=== PATIENT | male | born 1955 | race Caucasian/White ===

== ENCOUNTER 2022-04-11 11:33 | Inpatient (IN) | payer MEDICARE, SELFPAY ==
[2022-04-11 12:31] LABS: INR-International Normal Ratio 1.1; Prothrombin Time 14.5 sec (12.0-14.7)
[2022-04-11 12:32] LABS: PTT 41.3 sec (22.9-36.1)
[2022-04-11 12:33] LABS: Hemoglobin 12.1 g/dL (14.0-18.0); Mean Corpuscular HGB CONC 32.2 g/dL (32.0-36.0); Mean Corpuscular Hemoglobin 29.9 pg (27.0-31.0); Mean Corpuscular Volume 92.8 fL (78.0-98.0); Mean Platelet Volume 7.3 fL (7.4-10.4); Platelet Count 506 thou/uL (130-400); RBC Distribution Width 12.5 % (11.5-14.5); Red Blood Cell (RBC) Count 4.06 mill/uL (4.70-6.10); White Blood Cell (WBC) Count 25.2 thou/uL (4.8-10.8)
[2022-04-11 12:46] LABS: ALT (SGPT) 56 U/L (8-55); AST (SGOT) 41 U/L (5-34); Albumin 2.8 g/dL (3.4-4.8); Alkaline Phosphatase 1197 U/L (40-110); Anion Gap 14 mmol/L (10-20); BUN (Urea Nitrogen) 9 mg/dL (8.4-25.7); Bilirubin, Total 1.8 mg/dL (0.2-1.2); Calc. Creatinine Clearance 0 mL/min (70-130); Carbon Dioxide 23 mmol/L (23-31); Chloride 97 mmol/L (98-107); Globulin 3.2 g/dL (2.4-3.5); Glucose 109 mg/dL (80-115); Potassium 3.7 mmol/L (3.5-5.1); Sodium 130 mmol/L (136-145)
[2022-04-11 13:01] LABS: Band 6 % (5-11); Lymphocytes 5 % (21-51); MDiff Complete? YES; Monocytes 4 % (0-10); Neutrophil 84 % (42-75); Platelet Morphology Comment Appears Increased; Polychromasia SLIGHT = 2-3 cells (100X) (0-2/hpf); Reactive Lymphocytes 1 % (0-10)
[2022-04-11] MEDS ORDERED: Iopamidol-370 76% 500 ML 1 ML ONE (14:31)
[2022-04-11] MEDS ORDERED: Ondansetron PF 4 MG/2 ML Vial ONE (15:59)
[2022-04-11] MEDS ORDERED: Piperacillin/Tazobactam 3.375 GM VIAL ONE (16:22)
[2022-04-11] MEDS ORDERED: Ondansetron PF 4 MG/2 ML Vial IVP PRN (17:28)
[2022-04-11] MEDS ORDERED: Ondansetron ODT 4 MG TAB PO PRN (17:28)
[2022-04-11] MEDS ORDERED: Calcium Carbonate 500 MG ChewTAB PO PRN (17:28)
[2022-04-11] MEDS ORDERED: Electrolyte Replacement Protocol 1 EACH FS SCH (17:30)
[2022-04-11 17:38] VITALS: BMI 23.3
[2022-04-11] MEDS ORDERED: Electrolyte Replacement Protocol FS PRN (17:45)
[2022-04-11] MEDS ORDERED: Multivitamins, Adult 10 ML, Folic Acid 1 MG, Thiamine HCl 100 MG in Dextrose 5 %-0.45 %... IV SCH (18:00)
[2022-04-11] MEDS ORDERED: Pantoprazole 40 MG VIAL IVP SCH (18:15)
[2022-04-11] MEDS: Sodium Chloride 0.9% 1,000 ML IV SCH (19:17)
[2022-04-11] MEDS: Piperacillin/Tazobactam 3.375 GM in Sodium Chloride 0.9% 100 ML IVPB SCH (20:09)
[2022-04-12] MEDS: Sodium Chloride 0.9% 1,000 ML IV SCH ×4 (00:52→22:28)
[2022-04-12] MEDS ORDERED: D5 0.9% NS w/ 20 mEq KCl 1,000 ML IV SCH (02:00)
[2022-04-12] MEDS: Piperacillin/Tazobactam 3.375 GM in Sodium Chloride 0.9% 100 ML IVPB SCH ×3 (04:27→22:56)
[2022-04-12 06:44] LABS: Reticulocyte Count 0.8 % (0.5-1.5)
[2022-04-12 06:55] LABS: ALT (SGPT) 42 U/L (8-55); AST (SGOT) 32 U/L (5-34); Albumin 2.5 g/dL (3.4-4.8); Alkaline Phosphatase 936 U/L (40-110); Anion Gap 9 mmol/L (10-20); BUN (Urea Nitrogen) 6 mg/dL (8.4-25.7); Bilirubin, Total 1.8 mg/dL (0.2-1.2); Calc. Creatinine Clearance 127 mL/min (70-130); Calcium 8.8 mg/dL (7.8-10.44); Carbon Dioxide 27 mmol/L (23-31); Chloride 105 mmol/L (98-107); Globulin 3.4 g/dL (2.4-3.5); Glucose 110 mg/dL (80-115); Magnesium 2.1 mg/dL (1.6-2.6); Phosphorus 2.5 mg/dL (2.3-4.7); Potassium 3.2 mmol/L (3.5-5.1); Protein, Total 5.9 g/dL (5.8-8.1); Sodium 138 mmol/L (136-145)
[2022-04-12 06:58] LABS: Band 4 % (5-11); Hemoglobin 10.5 g/dL (14.0-18.0); Hypochromia SLIGHT = 6-15 cells (100X) (0-5/hpf); Lymphocytes 21 % (21-51); MDiff Complete? YES; Mean Corpuscular HGB CONC 31.6 g/dL (32.0-36.0); Mean Corpuscular Hemoglobin 29.3 pg (27.0-31.0); Mean Corpuscular Volume 92.8 fL (78.0-98.0); Mean Platelet Volume 6.7 fL (7.4-10.4); Monocytes 14 % (0-10); Neutrophil 60 % (42-75); Platelet Count 511 thou/uL (130-400); Platelet Morphology Comment Appears Increased; RBC Distribution Width 12.7 % (11.5-14.5); Reactive Lymphocytes 1 % (0-10); Red Blood Cell (RBC) Count 3.59 mill/uL (4.70-6.10); White Blood Cell (WBC) Count 17.6 thou/uL (4.8-10.8)
[2022-04-12] MEDS: Pantoprazole 40 MG VIAL IVP SCH ×2 (07:39→22:56)
[2022-04-12] MEDS: Saccharomyces boulardii 250 MG CAP PO SCH (07:39)
[2022-04-12] MEDS ORDERED: Iopamidol 30 ML ONE (07:51)
[2022-04-12] MEDS ORDERED: Indomethacin 50 MG SUPP ONE (07:52)
[2022-04-12] MEDS ORDERED: Phenylephrine 10 MG/ML VIAL ONE (08:00)
[2022-04-12] MEDS ORDERED: Potassium Chloride 20 MEQ TAB PO SCH (08:00)
[2022-04-12] MEDS ORDERED: fentaNYL Citrate/PF 100 MCG/2 ML SYRINGE ONE (08:00)
[2022-04-12] MEDS ORDERED: PHENYLEPHRINE-NS 100 MCG/ML 10 ML SYRINGE ONE (08:44)
[2022-04-12] MEDS ORDERED: PROPOFOL 200 MG/20 ML VIAL ONE (08:44)
[2022-04-12] MEDS ORDERED: Rocuronium Bromide 10 MG/ML (10ML VIAL) ONE (08:44)
[2022-04-12] MEDS ORDERED: Lidocaine 1% PF 5 ML VIAL ONE (08:44)
[2022-04-12] MEDS ORDERED: Glycopyrrolate 0.2 MG/ML 5 ML SYRINGE ONE (08:44)
[2022-04-12] MEDS ORDERED: Ondansetron HCl/PF 4 MG/2 ML Vial IVP PRN (09:07)
[2022-04-13] MEDS: Sodium Chloride 0.9% 1,000 ML IV SCH ×4 (05:41→21:22)
[2022-04-13] MEDS: Piperacillin/Tazobactam 3.375 GM in Sodium Chloride 0.9% 100 ML IVPB SCH ×3 (05:42→21:23)
[2022-04-13 06:25] LABS: #Lymphocytes 1.7 thou/uL (1.20-3.40); #Monocytes 0.8 thou/uL (0.11-0.59); %Basophils 0.1 % (0.0-1.0); %Eosinophils 0.1 % (0.0-10.0); %Lymphocytes 11.6 % (21.0-51.0); %Monocytes 5.6 % (0.0-10.0); %Neutrophils 82.6 % (42.0-75.0); Hemoglobin 10.4 g/dL (14.0-18.0); Mean Corpuscular HGB CONC 31.3 g/dL (32.0-36.0); Mean Corpuscular Hemoglobin 30.1 pg (27.0-31.0); Mean Corpuscular Volume 96.1 fL (78.0-98.0); Mean Platelet Volume 7.2 fL (7.4-10.4); Platelet Count 493 thou/uL (130-400); RBC Distribution Width 12.5 % (11.5-14.5); Red Blood Cell (RBC) Count 3.45 mill/uL (4.70-6.10); White Blood Cell (WBC) Count 14.5 thou/uL (4.8-10.8)
[2022-04-13 06:55] LABS: ALT (SGPT) 37 U/L (8-55); AST (SGOT) 27 U/L (5-34); Albumin 2.4 g/dL (3.4-4.8); Alkaline Phosphatase 866 U/L (40-110); Anion Gap 10 mmol/L (10-20); BUN (Urea Nitrogen) 11 mg/dL (8.4-25.7); Calc. Creatinine Clearance 127 mL/min (70-130); Carbon Dioxide 25 mmol/L (23-31); Chloride 103 mmol/L (98-107); Globulin 3.2 g/dL (2.4-3.5); Glucose 124 mg/dL (80-115); Phosphorus 3.1 mg/dL (2.3-4.7); Potassium 3.8 mmol/L (3.5-5.1); Protein, Total 5.6 g/dL (5.8-8.1); Sodium 134 mmol/L (136-145)
[2022-04-13] MEDS ORDERED: Magnesium 2 GM/50 ML(in water) 2 GM in Premix Bag 1 BAG IVPB SCH (07:30)
[2022-04-13] MEDS: Saccharomyces boulardii 250 MG CAP PO SCH (08:24)
[2022-04-13] MEDS: Pantoprazole 40 MG VIAL IVP SCH ×2 (08:24→21:24)
[2022-04-14] MEDS: Sodium Chloride 0.9% 1,000 ML IV SCH ×3 (04:27→17:47)
[2022-04-14] MEDS: Piperacillin/Tazobactam 3.375 GM in Sodium Chloride 0.9% 100 ML IVPB SCH ×3 (04:28→20:19)
[2022-04-14] MEDS: Saccharomyces boulardii 250 MG CAP PO SCH (08:27)
[2022-04-14] MEDS: Pantoprazole 40 MG VIAL IVP SCH ×2 (08:27→20:19)
[2022-04-14 20:30] VITALS: BP 138/80; TEMP 97.7
== END 2022-04-14 22:28 | disposition short-term general hospital (02) | DRG 871 ==
LOC: ERS 11:33 → T4-B 16:18 → OBSVTOIN 17:28
PROVIDERS: ADMIT Internal Medicine; ATTEND Hospitalist
PROC: 3E03329 Introduction of Other Anti-infective into Peripheral Vein, Percutaneous Approach (ICD-10-PCS; 2022-04-11)
PROC: 0DB68ZX Excision of Stomach, Via Natural or Artificial Opening Endoscopic, Diagnostic (ICD-10-PCS; principal; 2022-04-12)
DX: A41.9 Sepsis, unspecified organism (principal); E43 Unspecified severe protein-calorie malnutrition; K21.01 Gastro-esophageal reflux disease with esophagitis, with bleeding; K29.61 Other gastritis with bleeding; D62 Acute posthemorrhagic anemia; E87.1 Hypo-osmolality and hyponatremia; K80.41 Calculus of bile duct with cholecystitis, unspecified, with obstruction; K92.1 Melena; Z20.822 Contact with and (suspected) exposure to COVID-19; Z74.01 Bed confinement status; Z88.0 Allergy status to penicillin; I25.2 Old myocardial infarction; Z90.81 Acquired absence of spleen; Z68.23 Body mass index [BMI] 23.0-23.9, adult; Z87.442 Personal history of urinary calculi
CPT/HCPCS: 36415; 71045; 74177; 76000; 76705; 80053; 83605; 83690; 83735; 84100; 84484; 85025; 85046; 85610; 85730; 86850; 86900; 86901; 87040; 87077; 87149; 87186; 88305; 88342; 90471; 90732; 93005; 96360; 96365; 96375; C9113; G0009; J2370; J2405; J2543; J2704; J3411; J3475; J3490; J7042; J7050; Q9967; U0003; U0005